=== PATIENT | male | born 1930 | race Caucasian/White ===

== ENCOUNTER 2017-04-07 09:22 | Outpatient (CLI) | payer BC ==
--- NOTE | 2017-04-07 12:31 | XRAY Report ---
LEFT HIP AND PELVIS: 04/07/2017 CLINICAL INDICATION: Left hip pain. FINDINGS: Frontal view of the hips and pelvis and frogleg lateral view of the left hip demonstrate m ild osteoarthritis. There is no evidence of acute fracture or dislocation. No radiopaque foreign body is seen in the soft tissues. IMPRESSION: MILD OSTEOARTHRITIS. JOB #: [id number] EXT [id number] #:[id number]
== END 2017-04-07 09:23 | disposition home or self-care (01) ==
LOC: DI 09:22
PROVIDERS: ATTEND Family Medicine
DX: M16.12 Unilateral primary osteoarthritis, left hip (principal)

== ENCOUNTER 2017-05-18 07:14 | Emergency (ER) | payer BC ==
--- NOTE | 2017-05-18 08:16 | ED Physician Documentation ---
History of Present Illness - Stated complaint Stated Complaint: COUGHING BLOOD - Chief complaint Chief Complaint: Resp - Additonal information Additional information: Patient is a 86-year-old male with a history of GERD, dyslipidemia, atrial fibrillation on Xarelto, hypertension and hypothyroidism. He presents with a complaint of spitting up a small amount of blood this morning. He believes it might of been blood-tinged mucus. This happened a couple times. He is unclear of the source as far as whether it is from his lungs or oropharynx. He denies any ENT symptoms and has no complaints of chest pain cough, shortness of breath or fever. He is quite clear that is not coming from his stomach. When you have small amount of mucus with blood streaks were seen earlier today's never had this problem before he is compliant with his Xarelto there is no history of congestive heart failure. He really has no significant complaints other than seeing the blood and mucus today. Review of systems: For pertinent positive and negatives in the review of systems please see the history of present illness, otherwise all other systems have been reviewed and are negative. Dragon disclaimer: Parts of this medical record were created using voice recognition technology. Because of the inherent limitations of this system, occasional same sounding word substitutions do occur and persist despite proofreading. Please read the document for context. Review of Systems Ten Systems: 10 systems reviewed and negative Constitutional: denies: Fever, Chills, Myalgias Throat: reports: Oral lesions / sores. denies: Dental pain / toothache, Sore throat Respiratory: denies: Dyspnea, Cough GI: denies: Abdominal Pain, Abdominal Swelling PD PAST MEDICAL HISTORY - Past Medical History Cardiovascular: Hypertension, Atrial fibrillation, Arrhythmia, Other Respiratory: None Neuro: TIA Endocrine/Autoimmune: HyPOthyroidism GI: GERD, Hiatal hernia : None HEENT: Chronic hearing loss Psych: None Musculoskeletal: None Derm: None - Past Surgical History Past Surgical History: Yes General: Hiatal hernia repair, Colonoscopy, EGD Ortho: Other Derm: Skin cancer surgery - Present Medications Home Medications: Ambulatory Orders Medication Instructions Recorded Confirmed Cholecalciferol (Vitamin D3) 1,000 unit PO DAILY 11/14/14 05/18/17 [Vitamin D] Cod Liver Oil 1 each PO DAILY 11/14/14 05/18/17 Esomeprazole Magnesium [Nexium] 40 mg PO BID 11/14/14 05/18/17 Flaxseed Oil/[place] 3,6,9 [Sv 1 each PO DAILY 11/14/14 05/18/17 Flaxseed Oil 1,300 mg Sftgl] Levothyroxine [Synthroid] 25 mg PO DAILY 11/14/14 05/18/17 Multivitamin [Multivitamins] 1 each PO DAILY 11/14/14 05/18/17 Atorvastatin [Lipitor] 10 mg ORAL DAILY 12/10/15 05/18/17 Isosorbide Mononitrate [Isosorbide 30 mg ORAL DAILY 12/10/15 05/18/17 Mononitrate ER] Losartan/Hydrochlorothiazide 0.5 tab ORAL DAILY 12/10/15 05/18/17 [Hyzaar 100-25 Tablet] Mag Carb/Al Hydrox/Alginic AC 160 mg PO ONCE PRN 12/10/15 05/18/17 [Gaviscon Extra Strength Liquid] Rivaroxaban [Xarelto] 10 mg PO DAILY 12/10/15 05/18/17 Aspirin [Adult Low Dose Aspirin EC] 81 mg PO DAILY 05/18/17 05/18/17 Nitroglycerin [Nitrostat] 0.4 mg PO PRN PRN 05/18/17 05/18/17 - Allergies Allergies/Adverse Reactions: Allergies Allergy/AdvReac Type Severity Reaction Status Date / Time No Known Drug Allergies Allergy Verified 05/18/17 07:23 - Social History Does the pt smoke?: No Smoking Status: Never smoker Does the pt drink ETOH?: No Does the pt have substance abuse?: No - Immunizations Immunizations are current?: Yes - POLST Patient has POLST: No PD ED PE NORMAL - General General: Alert and oriented X 3, No acute distress, Well developed/nourished - HEENT HEENT: Atraumatic, PERRL, EOMI, Ears normal, Moist mucous membranes, Pharynx benign, Dentition benign - Neck Neck: Supple, no meningeal sign, No bony TTP - Cardiac Cardiac: RRR, No murmur, No gallop, No rub, Other (Mildly bradycardic and occasionally irregular) - Respiratory Respiratory: No respiratory distress, Clear bilaterally - Abdomen Abdomen: Normal bowel sounds, Soft, Non tender, Non distended - Derm Derm: Normal color, Warm and dry - Extremities Extremities: No deformity, No tenderness to palpate, Normal ROM s pain, No edema - Neuro Neuro: Alert and oriented X 3, No motor deficit, No sensory deficit Results - Vitals Vitals: Vital Signs - 24 hr 05/18/17 05/18/17 05/18/17 07:20 07:44 09:08 Temperature 36.1 C L 36.1 C L Heart Rate 58 L 53 L Respiratory 13 16 Rate Blood Pressure 193/79 H 175/75 H O2 Saturation 99 98 05/18/17 09:14 Temperature Heart Rate 52 L Respiratory 16 Rate Blood Pressure 177/68 H O2 Saturation 99 Oxygen O2 Source Room air - Labs Labs: Laboratory Tests 05/18/17 05/18/17 05/18/17 08:10 08:10 08:10 WBC 6.0 RBC 4.24 L Hgb 13.8 L Hct 40.7 L MCV 96.1 H MCH 32.5 H MCHC 33.8 RDW 14.0 Plt Count 136 MPV 9.3 Neut # 3.8 Lymph # 1.2 L [place] # 0.8 Eos # 0.2 Baso # 0.0 Absolute Nucleated RBC 0.00 Nucleated RBCs 0.0 PT 13.8 H INR 1.2 Sodium 140 Potassium 4.0 Chloride 105 Carbon Dioxide 29 Anion Gap 6.0 BUN 28 H Creatinine 1.1 Estimated GFR (MDRD) 64 L Glucose 123 H Calcium 8.9 Total Bilirubin 0.8 AST 19 ALT 21 Alkaline Phosphatase 90 Total Protein 6.4 L Albumin 3.8 Globulin 2.6 Albumin/Globulin Ratio 1.5 Lipase 22 Urine Color Urine Clarity Urine pH Ur Specific [place] Urine Protein Urine Glucose (UA) Urine Ketones Urine Occult Blood Urine Nitrite Urine Bilirubin Urine Urobilinogen Ur Leukocyte Esterase Ur Microscopic Review Urine Culture Comments 05/18/17 08:31 WBC RBC Hgb Hct MCV MCH MCHC RDW Plt Count MPV Neut # Lymph # [place] # Eos # Baso # Absolute Nucleated RBC Nucleated RBCs PT INR Sodium Potassium Chloride Carbon Dioxide Anion Gap BUN Creatinine Estimated GFR (MDRD) Glucose Calcium Total Bilirubin AST ALT Alkaline Phosphatase Total Protein Albumin Globulin Albumin/Globulin Ratio Lipase Urine Color YELLOW Urine Clarity CLEAR Urine pH 6.0 Ur Specific [place] 1.020 Urine Protein NEGATIVE Urine Glucose (UA) NEGATIVE Urine Ketones NEGATIVE Urine Occult Blood NEGATIVE Urine Nitrite NEGATIVE Urine Bilirubin NEGATIVE Urine Urobilinogen 0.2 (NORMAL) Ur Leukocyte Esterase NEGATIVE Ur Microscopic Review NOT INDICATED Urine Culture Comments NOT INDICATED PD MEDICAL DECISION MAKING - ED course Complexity details: reviewed old records, reviewed results, re-evaluated patient , considered differential, d/w patient ED course: Pleasant 86-year-old man who is asymptomatic for anything who presents with a small amount of blood in his mucus. He is unclear where this has come from. He does not have any cardiac, pulmonary, or gastrointestinal symptoms or findings. Careful examination fails to show any obvious cause. Blood work on this patient shows chronic kidney disease but no evidence of any acute abnormality. His chest x-ray shows no acute intrathoracic disease. I suspect it is coming from his oral nasopharynx and the fact that he is on Xarelto is likely contributory. At this point in time there is no evidence of congestive heart failure clinical evidence suggesting pulmonary mass or pulmonary embolism. I will have him watch his symptoms closely. And he should follow-up with his doctor return should any of his symptoms recur or worsen. Disposition: To home Clinical impression: 1. Bloody mucus in mouth. Small amount is no obvious source found doubt pulmonary or gastrointestinal at this time Departure - Departure Disposition: 01 Home, Self Care Condition: Good Follow-Up: Micheal Hart MD [Primary Care Provider] - Comments: It is unclear where the blood is coming from. I suspect it is coming from your oral and nasopharynx and not from your lungs or stomach. I would continue his of Xarelto as planned and watch her symptoms closely for worsening. If you experience more bleeding and he believes it to be coming from anywhere other than your nose, sinuses her mouth please return right away
[2017-05-18 08:17] LABS: BASOPHILS % (AUTO) 0.6 %; EOSINOPHILS # (AUTO) 0.2 10^3/uL (0.0-0.7); EOSINOPHILS % (AUTO) 2.9 %; HCT - HEMATOCRIT 40.7 % (42.0-52.0); HGB - HEMOGLOBIN 13.8 g/dL (14.0-18.0); LYMPHOCYTES # (AUTO) 1.2 10^3/uL (1.5-3.5); LYMPHOCYTES % (AUTO) 19.3 %; MEAN CORPUSCULAR HEMOGLOBIN 32.5 pg (27.0-31.0); MEAN CORPUSCULAR HGB CONC 33.8 g/dL (32.0-36.0); MEAN CORPUSCULAR VOLUME 96.1 fL (80.0-94.0); MEAN PLATELET VOLUME 9.3 fL (7.4-11.4); MONOCYTES # (AUTO) 0.8 10^3/uL (0.0-1.0); MONOCYTES % (AUTO) 12.8 %; NEUTROPHILS # (AUTO) 3.8 10^3/uL (1.5-6.6); NEUTROPHILS % (AUTO) 64.4 %; RED BLOOD COUNT 4.24 10^6/uL (4.70-6.10)
[2017-05-18 08:26] LABS: INR 1.2 (0.8-1.2); PT - PROTHROMBIN TIME 13.8 secs (9.9-12.6)
[2017-05-18 08:32] LABS: ALBUMIN/GLOBULIN RATIO 1.5 (1.0-2.2); BILIRUBIN,TOTAL 0.8 mg/dL (0.2-1.0); CALCIUM 8.9 mg/dL (8.5-10.3); CREATININE 1.1 mg/dL (0.6-1.2); TOTAL PROTEIN 6.4 g/dL (6.7-8.2)
[2017-05-18 08:38] LABS: BILIRUBIN,URINE NEGATIVE (NEGATIVE)
--- NOTE | 2017-05-18 08:43 | XRAY Preliminary Report ---
Exam: XR Chest 2 View PA/LAT IMPRESSION: No focal consolidation. [facility] SITE ID: [id number]
[2017-05-18 08:44] LABS: UA CHARGE (STRIP ONLY) YES; UR CULTURE IF IND NOT INDICATED
--- NOTE | 2017-05-18 08:45 | XRAY Report ---
EXAM: CHEST RADIOGRAPHY EXAM DATE: 05/18/2017 08:27 AM. CLINICAL HISTORY: Hemoptysis?. COMPARISON: Chest radiograph dated 11/18/2013. TECHNIQUE: 2 views. FINDINGS: Lungs/Pleura: No focal opacities evident. No pleural effusion. No pneumothorax. Normal volumes. Mediastinum: Heart and mediastinal contours are unremarkable. Other: None. IMPRESSION: No focal consolidation. [facility] Referring Provider Line: [phone] SITE ID: [id number]
[2017-05-18 09:15] VITALS: BP 177/68
== END 2017-05-18 09:53 | disposition home or self-care (01) ==
LOC: ED 07:14
DX: R04.2 Hemoptysis (principal); I48.91 Unspecified atrial fibrillation; I10 Essential (primary) hypertension; E03.9 Hypothyroidism, unspecified; K21.9 Gastro-esophageal reflux disease without esophagitis; E78.5 Hyperlipidemia, unspecified; Z79.01 Long term (current) use of anticoagulants; Z86.73 Personal history of transient ischemic attack (TIA), and cerebral infarction without residual deficits
CPT/HCPCS: 36415; 71020; 80053; 81001; 81003; 83690; 85025; 85610; 87086; 99283

== ENCOUNTER 2017-09-21 20:44 | Emergency (ER) | payer BC ==
[2017-09-21] MEDS ORDERED: LIDOCAINE-MPF 1% 5 ML VIAL SUBQ STA (21:31)
[2017-09-21] MEDS ORDERED: LIDOCAINE 1% 2 ML VIAL ONE (21:40)
--- NOTE | 2017-09-21 22:03 | ED Physician Documentation ---
History of Present Illness - Stated complaint Stated Complaint: TONGUE LAC - Chief complaint Chief Complaint: Laceration - Additonal information Additional information: 87-year-old on Pradaxa presents with tongue laceration. Bit his tongue first while eating and then but it again later. Presents to the emergency department for persistent bleeding. Review of Systems Constitutional: reports: Other. denies: Fever Neurologic: reports: Other (no Dysarthria or difficulty swallowing) PD PAST MEDICAL HISTORY - Past Medical History Cardiovascular: Hypertension, Atrial fibrillation, Arrhythmia, Other Respiratory: None Neuro: TIA Endocrine/Autoimmune: HyPOthyroidism GI: GERD, Hiatal hernia : None HEENT: Chronic hearing loss Psych: None Musculoskeletal: None Derm: None - Past Surgical History Past Surgical History: Yes General: Hiatal hernia repair, Colonoscopy, EGD Ortho: Other Derm: Skin cancer surgery - Present Medications Home Medications: Ambulatory Orders Medication Instructions Recorded Confirmed Cholecalciferol (Vitamin D3) 1,000 unit PO DAILY 11/14/14 05/18/17 [Vitamin D] Cod Liver Oil 1 each PO DAILY 11/14/14 05/18/17 Esomeprazole Magnesium [Nexium] 40 mg PO BID 11/14/14 05/18/17 Flaxseed Oil/[place] 3,6,9 [Sv 1 each PO DAILY 11/14/14 05/18/17 Flaxseed Oil 1,300 mg Sftgl] Levothyroxine [Synthroid] 25 mg PO DAILY 11/14/14 05/18/17 Multivitamin [Multivitamins] 1 each PO DAILY 11/14/14 05/18/17 Atorvastatin [Lipitor] 10 mg ORAL DAILY 12/10/15 05/18/17 Isosorbide Mononitrate [Isosorbide 30 mg ORAL DAILY 12/10/15 05/18/17 Mononitrate ER] Losartan/Hydrochlorothiazide 0.5 tab ORAL DAILY 12/10/15 05/18/17 [Hyzaar 100-25 Tablet] Mag Carb/Al Hydrox/Alginic AC 160 mg PO ONCE PRN 12/10/15 05/18/17 [Gaviscon Extra Strength Liquid] Rivaroxaban [Xarelto] 10 mg PO DAILY 12/10/15 05/18/17 Aspirin [Adult Low Dose Aspirin EC] 81 mg PO DAILY 05/18/17 05/18/17 Nitroglycerin [Nitrostat] 0.4 mg PO PRN PRN 05/18/17 05/18/17 - Allergies Allergies/Adverse Reactions: Allergies Allergy/AdvReac Type Severity Reaction Status Date / Time lisinopril Allergy Edema Verified 09/21/17 20:55 - Social History Does the pt smoke?: No Smoking Status: Never smoker Does the pt drink ETOH?: Yes ETOH Use: Wine, Beer, Liquor Does the pt have substance abuse?: No - Immunizations Immunizations are current?: Yes - POLST Patient has POLST: No PD ED PE NORMAL - Vitals Vital signs reviewed: Yes - General General: Alert and oriented X 3, No acute distress - HEENT HEENT: Other (2 tongue lacerations, 5-10 mm, one with controlled bleeding, the other with oozing. ) - Neck Neck: Supple, no meningeal sign - Respiratory Respiratory: No respiratory distress, Clear bilaterally - Derm Derm: Warm and dry - Extremities Extremities: No deformity - Neuro Neuro: Alert and oriented X 3, Normal speech - Psych Psych: Normal mood, Normal affect Results - Vitals Vitals: Vital Signs - 24 hr 09/21/17 20:45 Temperature 36.3 C L Heart Rate 55 L Respiratory 16 Rate Blood Pressure 187/69 H O2 Saturation 98 Oxygen O2 Source Room air Procedures - Laceration (location) Other right Anterior Wound type: Flap, Superficial, Clean Anesthesia: Lidocaine 1% Skin layer closure: Other (3 4-0 chromic sutures.) Departure - Departure Disposition: 01 Home, Self Care Clinical Impression: Laceration Condition: Good Instructions: ED Laceration Mouth Comments: Make an appointment with your primary care doctor for follow-up as needed. This evening you should try sleeping propped up more than usual or uprightIn case her tongue starts bleeding a lot while you are sleeping. Return to the emergency department if you have worsening bleeding, lightheadedness or dizziness or nausea or vomiting. Your sutures will dissolve on their own you do not need to have them removed.
[2017-09-21 22:44] VITALS: BP 179/85
== END 2017-09-21 22:44 | disposition home or self-care (01) ==
LOC: ED 20:44
DX: S01.512A Laceration without foreign body of oral cavity, initial encounter (principal); X58.XXXA Exposure to other specified factors, initial encounter; I10 Essential (primary) hypertension; Z85.828 Personal history of other malignant neoplasm of skin; Z79.01 Long term (current) use of anticoagulants; Z79.82 Long term (current) use of aspirin
CPT/HCPCS: 41250; 99283

== ENCOUNTER 2018-11-08 12:04 | Outpatient (CLI) | payer BC ==
--- NOTE | 2018-11-08 12:53 | XRAY Report ---
Reason: PNEUMONIA Procedure Date: 11/08/2018 Accession Number: [id number] / [id number] Procedure: XR - Chest 2 View X-Ray CPT Code: 58698 FULL RESULT: EXAM: CHEST RADIOGRAPHY EXAM DATE: 11/08/2018 12:25 PM. CLINICAL HISTORY: PNEUMONIA. COMPARISON: CHEST 2 VIEW PA/LAT 05/18/2017 8:12 AM. TECHNIQUE: 2 views. FINDINGS: Lungs/Pleura: No focal opacities evident. No pleural effusion. No pneumothorax. Normal volumes. Mediastinum: Heart and mediastinal contours are unremarkable. Other: Some degenerative changes in the shoulders, no acute bony abnormality. Slight curvature of the thoracolumbar junction was present on the prior. IMPRESSION: No acute disease. [facility]
== END 2018-11-08 12:05 | disposition home or self-care (01) ==
LOC: DI 12:04
PROVIDERS: ATTEND Family Medicine
DX: J18.9 Pneumonia, unspecified organism (principal)
CPT/HCPCS: 71046

== ENCOUNTER 2019-08-21 09:18 | Outpatient (CLI) | payer BC | END 2019-08-21 09:19 | disposition critical access hospital (66) | LOC: EMS 09:18 | PROVIDERS: ATTEND Surgery | DX: R07.9 Chest pain, unspecified (principal) | CPT/HCPCS: A0425; A0427 ==

== ENCOUNTER 2019-08-21 09:37 | Emergency (ER) | payer BC ==
[2019-08-21] MEDS ORDERED: FAMOTIDINE 20 MG/2 ML VIAL IVP STA (10:07)
[2019-08-21] MEDS ORDERED: MORPHINE 2 MG/ML CARPUJECT IVP STA (10:07)
[2019-08-21] MEDS ORDERED: ONDANSETRON 4 MG/2 ML VIAL IVP STA (10:07)
[2019-08-21 10:10] LABS: BASOPHILS % (AUTO) 0.5 %; EOSINOPHILS # (AUTO) 0.1 10^3/uL (0.0-0.7); EOSINOPHILS % (AUTO) 1.4 %; HGB - HEMOGLOBIN 12.8 g/dL (14.0-18.0); LYMPHOCYTES % (AUTO) 14.6 %; MEAN CORPUSCULAR HEMOGLOBIN 31.4 pg (27.0-31.0); MEAN CORPUSCULAR HGB CONC 32.7 g/dL (32.0-36.0); MEAN CORPUSCULAR VOLUME 96.1 fL (80.0-94.0); MEAN PLATELET VOLUME 10.8 fL (7.4-11.4); MONOCYTES # (AUTO) 0.7 10^3/uL (0.0-1.0); NEUTROPHILS # (AUTO) 4.7 10^3/uL (1.5-6.6); NEUTROPHILS % (AUTO) 72.2 %; PLT - PLATELET COUNT 169 10^3/uL (130-450); RED BLOOD COUNT 4.07 10^6/uL (4.70-6.10); RED CELL DISTRIBUTION WIDTH 13.8 % (12.0-15.0); WHITE BLOOD COUNT 6.6 x10^3/uL (4.8-10.8)
--- NOTE | 2019-08-21 10:10 | ED Physician Documentation ---
PD HPI CHEST PAIN - Stated complaint Stated Complaint: CP - Chief complaint Chief Complaint: Cardiac - History obtained from History obtained from: Patient - History of Present Illness Timing - onset: Today Timing - onset during: Eating Timing - details: Abrupt onset Pain level now: 3 Quality: Pain Location: Substernal, Left chest Radiation: No: Jaw, Neck, Back, Left upper extremity Improved by: Nitro, ASA Associated symptoms: No: Shortness of air, Diaphoresis, Nausea, Vomiting, Feeling faint / dizzy, General Weakness, Palpitations, Cough Recently seen: Not recently seen - Additional information Additional information: This is an 89-year-old man who presents with his complaints that he developed chest pain this morning while eating breakfast. He had nitroglycerin that was given to him prior to a trip that he took that he was good to be at high elevation and so he took 3 of them today and the pain came down only to a 2-3 out of 10. He also took 4 baby aspirin. Patient says that he has been taking these nitroglycerin off and on for the past week for this same pain. Each time he is taken nitroglycerin the pain has resolved after just 2 pills. He denies history of [place], stents or bypass surgery but does take Xarelto. He also reports a history of "TIAs". This pain was not associated with any shortness of breath, sweating, nausea or vomiting or dizziness. Was in the epigastric substernal region and today it was a little bit "leftish" from there. Denies edema or history of DVT. Review of Systems Constitutional: denies: Fever Eyes: reports: Other (Wears glasses) Ears: reports: Loss of hearing (Wears hearing aids) Nose: denies: Congestion Throat: denies: Sore throat Cardiac: reports: Chest pain / pressure. denies: Palpitations, Pedal edema Respiratory: denies: Dyspnea, Cough GI: denies: Abdominal Pain, Nausea, Vomiting : denies: Dysuria Neurologic: denies: Generalized weakness, Near syncope, Syncope Endocrine: reports: Other (Patient is not a diabetic.) PD PAST MEDICAL HISTORY - Past Medical History Cardiovascular: Hypertension, Atrial fibrillation, Arrhythmia, Other Respiratory: None Neuro: TIA Endocrine/Autoimmune: HyPOthyroidism GI: GERD, Hiatal hernia : None HEENT: Chronic hearing loss Psych: None Musculoskeletal: Osteoarthritis Derm: None - Past Surgical History Past Surgical History: Yes General: Hiatal hernia repair, Colonoscopy, EGD Ortho: Other Derm: Skin cancer surgery - Present Medications Home Medications: Ambulatory Orders Medication Instructions Recorded Confirmed Cholecalciferol (Vitamin D3) 1,000 unit PO DAILY 11/14/14 08/21/19 [Vitamin D] Cod Liver Oil 1 each PO DAILY 11/14/14 08/21/19 Flaxseed Oil/[place] 3,6,9 [Sv 1 each PO DAILY 11/14/14 08/21/19 Flaxseed Oil 1,300 mg Sftgl] Levothyroxine [Synthroid] 25 mg PO DAILY 11/14/14 08/21/19 Multivitamin [Multivitamins] 1 each PO DAILY 11/14/14 08/21/19 Atorvastatin [Lipitor] 10 mg ORAL DAILY 12/10/15 08/21/19 Isosorbide Mononitrate [Isosorbide 30 mg ORAL DAILY 12/10/15 08/21/19 Mononitrate ER] Losartan/Hydrochlorothiazide 0.5 tab ORAL DAILY 12/10/15 08/21/19 [Hyzaar 100-25 Tablet] Mag Carb/Al Hydrox/Alginic AC 160 mg PO ONCE PRN 12/10/15 08/21/19 [Gaviscon Extra Strength Liquid] Rivaroxaban [Xarelto] 10 mg PO DAILY 12/10/15 08/21/19 Aspirin [Adult Low Dose Aspirin EC] 81 mg PO DAILY 05/18/17 08/21/19 Nitroglycerin [Nitrostat] 0.4 mg PO PRN PRN 05/18/17 08/21/19 - Allergies Allergies/Adverse Reactions: Allergies Allergy/AdvReac Type Severity Reaction Status Date / Time lisinopril Allergy Edema Verified 08/21/19 09:42 - Social History Does the pt smoke?: No Smoking Status: Never smoker Does the pt drink ETOH?: Yes Does the pt have substance abuse?: No - Immunizations Immunizations are current?: Yes - POLST Patient has POLST: No PD ED PE NORMAL - Vitals Vital signs reviewed: Yes - General General: Alert and oriented X 3, No acute distress, Well developed/nourished - HEENT HEENT: Atraumatic, PERRL, Moist mucous membranes, Pharynx benign - Neck Neck: Supple, no meningeal sign, No adenopathy, Thyroid normal - Cardiac Cardiac: RRR, No murmur, No rub, Strong equal pulses - Respiratory Respiratory: No respiratory distress, Clear bilaterally - Abdomen Abdomen: Normal bowel sounds, Soft, Non tender, Non distended, No organomegaly - Derm Derm: Normal color, Warm and dry, No rash - Extremities Extremities: No deformity, No edema - Neuro Neuro: Alert and oriented X 3, No motor deficit, No sensory deficit, Normal speech - Psych Psych: Normal mood, Normal affect Results - Vitals Vitals: Vital Signs - 24 hr 08/21/19 08/21/19 08/21/19 09:42 09:52 10:20 Temperature 36.1 C L 36.2 C L Heart Rate 76 66 61 Respiratory 16 17 16 Rate Blood Pressure 195/86 H 207/94 H 170/80 H O2 Saturation 97 98 98 08/21/19 11:07 Temperature 36.2 C L Heart Rate 62 Respiratory 18 Rate Blood Pressure 164/65 H O2 Saturation 97 Oxygen O2 Source Room air - EKG (time done) 0948 Rate: Rate (enter#) (66) Rhythm: NSR (With PACs) Intervals: Normal [place] Ischemia: ST depression (Minimal ST depressions in the lateral leads but there are large R waves) Compare to prior EKG: Old EKG unavailable - Labs Labs: Laboratory Tests 08/21/19 08/21/19 08/21/19 09:58 09:58 09:58 WBC 6.6 RBC 4.07 L Hgb 12.8 L Hct 39.1 L MCV 96.1 H MCH 31.4 H MCHC 32.7 RDW 13.8 Plt Count 169 MPV 10.8 Neut # (Auto) 4.7 Lymph # (Auto) 1.0 L [place] # (Auto) 0.7 Eos # (Auto) 0.1 Baso # (Auto) 0.0 Absolute Nucleated RBC 0.00 Nucleated RBC % 0.0 Sodium 138 Potassium 3.8 Chloride 100 L Carbon Dioxide 29 Anion Gap 9.0 BUN 23 H Creatinine 1.1 Estimated GFR (MDRD) 63 L Glucose 151 H Calcium 8.8 Total Bilirubin 0.8 AST 23 ALT 19 Alkaline Phosphatase 85 Troponin I High Sens 445.7 H* Total Protein 6.6 L Albumin 3.8 Globulin 2.8 Albumin/Globulin Ratio 1.4 Lipase 24 - Rads (name of study) CXR Radiology: EMP read contemporaneously (Neg acute) PD MEDICAL DECISION MAKING - ED course Complexity details: reviewed results, re-evaluated patient, d/w patient, d/w family, d/w mgmt consultant (10:53: Cardiology, Dr Cruz, requested ER to ER transfer to [place] due to ongoing chest pain. Agreed with Ntg drip and Heparin.) ED course: Patient's EKG had some minor ST to pression lateral leads but he had very tall R waves. No ST elevation. Chest x-ray was clear. His troponin came back over 400. He started on heparin and on reevaluation after having received morphine, Zofran and Pepcid IV he was still complaining of 2 out of 10 pain. He started on a nitroglycerin drip as well just low-dose. He is also remained hypertensive and bradycardic. Will contact his puddler helper or the on-call puddler helper for Dr. Cruz for transfer. Dr Mcacrthy in the ED at [place] agreed to accept the patient in transfer. Due to the ongoing pain and plan for cardiac cath, the patient will be sent by air ambulance. After he was loaded into the helicopter on the landing pad, the helicopter would not start and arrangements were made to rendezvous via ambulance with another helicopter at an alternative landing site. - Critical Care Time(min): 20 Time Includes: Direct patient care, Review records, Reassess patient, Document care, Coordinate care Data interpretation: Labs, CXR Departure - Departure Disposition: 02 Transfer Acute Care Hosp Clinical Impression: NSTEMI (non-ST elevated myocardial infarction) Condition: Good Discharge Date/Time: 08/21/19 11:30
[2019-08-21 10:24] LABS: ALBUMIN 3.8 g/dL (3.2-5.5); ALBUMIN/GLOBULIN RATIO 1.4 (1.0-2.2); BILIRUBIN,TOTAL 0.8 mg/dL (0.2-1.0); CALCIUM 8.8 mg/dL (8.5-10.3); CREATININE 1.1 mg/dL (0.6-1.2); TOTAL PROTEIN 6.6 g/dL (6.7-8.2)
[2019-08-21] MEDS ORDERED: HEPARIN 5,000 UNIT/ML VIAL IVP STA (10:41)
[2019-08-21] MEDS ORDERED: HEPARIN 25000UNITS/500ML (D5W) 25,000 UNIT/500 ML BAG IV STA (10:41)
[2019-08-21] MEDS ORDERED: NITROGLYCERIN 50 MG/250 ML 50 MG/250 ML BOTTLE IV STA (10:42)
[2019-08-21 11:09] VITALS: BP 164/65
--- NOTE | 2019-08-21 11:10 | XRAY Report ---
Reason: Chest Pain Procedure Date: 08/21/2019 Accession Number: [id number] / [id number] Procedure: XR - Chest 1 View X-Ray CPT Code: 73299 Final Report FULL RESULT: EXAM: CHEST RADIOGRAPHY EXAM DATE: 08/21/2019 10:32 AM. CLINICAL HISTORY: Chest Pain. Took 3 nitros before coming in, no change in pain level. COMPARISON: CHEST 2 VIEW 11/08/2018 12:15 PM CHEST 2 VIEW PA/LAT 05/18/2017 8:12 AM. TECHNIQUE: 1 view. FINDINGS: Lungs/Pleura: Senescent changes. No focal consolidation, pleural effusion, or pneumothorax. Mediastinum: Atherosclerotic calcification of aortic arch. Within exam limitations, the cardiomediastinal contour is otherwise normal. Other: Stable elevation of right hemidiaphragm. Mild degenerative changes in the partially visualized right shoulder. IMPRESSION: 1. No radiographic evidence of acute cardiopulmonary process. [facility]
== END 2019-08-21 11:30 | disposition short-term general hospital (02) ==
LOC: EDUNIT# → ED 09:37
DX: I21.4 Non-ST elevation (NSTEMI) myocardial infarction (principal); I10 Essential (primary) hypertension
CPT/HCPCS: 36415; 71045; 80053; 83690; 84484; 85025; 93005; 96374; 96375; 99284

== ENCOUNTER 2019-08-21 12:13 | Outpatient (CLI) | payer BC | END 2019-08-21 12:14 | disposition short-term general hospital (02) | LOC: EMS 12:13 | PROVIDERS: ATTEND Surgery | DX: I21.9 Acute myocardial infarction, unspecified (principal) | CPT/HCPCS: A0425; A0429 ==

== ENCOUNTER 2020-08-07 11:53 | Emergency (ER) | payer BC ==
--- NOTE | 2020-08-07 12:19 | ED Physician Documentation ---
History of Present Illness - Stated complaint Stated Complaint: RT FT PX - Chief complaint Chief Complaint: Ext Problem - History obtained from History obtained from: Patient - History of Present Illness Timing: How many days ago (3) - Additonal information Additional information: 89-year-old male presents to the emergency department with 3 days of acute right lateral foot pain. He denies any known falls or trauma. 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 When the pain began initially he was using Aspercreme with moderate relief but over the last 24 hours has been unable to bear weight on the foot. He denies any previous history of injury to this foot. No fevers. Review of Systems Constitutional: reports: Reviewed and negative Ears: reports: Reviewed and negative Throat: reports: Dental pain / toothache Cardiac: reports: Reviewed and negative Respiratory: reports: Reviewed and negative Skin: reports: Reviewed and negative Musculoskeletal: reports: Extremity pain (right foot) Neurologic: reports: Reviewed and negative PD PAST MEDICAL HISTORY - Past Medical History Cardiovascular: Hypertension, Atrial fibrillation, Arrhythmia, Other Respiratory: None Neuro: TIA Endocrine/Autoimmune: HyPOthyroidism GI: GERD, Hiatal hernia : None HEENT: Chronic hearing loss Psych: None Musculoskeletal: Osteoarthritis Derm: None - Past Surgical History Past Surgical History: Yes General: Hiatal hernia repair, Colonoscopy, EGD Ortho: Other Derm: Skin cancer surgery - Present Medications Home Medications: Ambulatory Orders Medication Instructions Recorded Confirmed Cholecalciferol (Vitamin D3) 1,000 unit PO DAILY 11/14/14 08/21/19 [Vitamin D] Cod Liver Oil 1 each PO DAILY 11/14/14 08/21/19 Flaxseed Oil/[place] 3,6,9 [Sv 1 each PO DAILY 11/14/14 08/21/19 Flaxseed Oil 1,300 mg Sftgl] Levothyroxine [Synthroid] 25 mg PO DAILY 11/14/14 08/21/19 Multivitamin [Multivitamins] 1 each PO DAILY 11/14/14 08/21/19 Atorvastatin [Lipitor] 10 mg ORAL DAILY 12/10/15 08/21/19 Isosorbide Mononitrate [Isosorbide 30 mg ORAL DAILY 12/10/15 08/21/19 Mononitrate ER] Losartan/Hydrochlorothiazide 0.5 tab ORAL DAILY 12/10/15 08/21/19 [Hyzaar 100-25 Tablet] Mag Carb/Al Hydrox/Alginic AC 160 mg PO ONCE PRN 12/10/15 08/21/19 [Gaviscon Extra Strength Liquid] Rivaroxaban [Xarelto] 10 mg PO DAILY 12/10/15 08/21/19 Aspirin [Adult Low Dose Aspirin EC] 81 mg PO DAILY 05/18/17 08/21/19 Nitroglycerin [Nitrostat] 0.4 mg PO PRN PRN 05/18/17 08/21/19 Acetaminophen [Tylenol] 650 mg PO Q6H PRN #30 tab 08/07/20 Knee Scooter 1 unit TD ONCE #1 08/07/20 Knee Scooter 1 unit TD ONCE #1 08/07/20 - Allergies Allergies/Adverse Reactions: Allergies Allergy/AdvReac Type Severity Reaction Status Date / Time lisinopril Allergy Edema Verified 08/07/20 12:09 - Social History Does the pt smoke?: No Smoking Status: Never smoker Does the pt drink ETOH?: Yes Does the pt have substance abuse?: No - Immunizations Immunizations are current?: Yes - POLST Patient has POLST: No PD ED PE EXPANDED - General General: Alert, No acute distress - Extremities Extremities: Right foot (tenderness base of the 4th/5th metatarsals. No swelling, ecchymosis or deformity. 2+ DP pulse. Full normal ROM of ankle in all planes) Results - Vitals Vitals: Vital Signs - 24 hr 08/07/20 08/07/20 12:01 13:25 Temperature 37.1 C 37.1 C Heart Rate 66 57 L Respiratory 18 18 Rate Blood Pressure 154/70 H 111/49 L O2 Saturation 99 99 Oxygen O2 Source Room air - Rads (name of study) right foot Radiology: Final report received (No acute osseous or abnormality noted) PD MEDICAL DECISION MAKING - ED course Complexity details: reviewed results, re-evaluated patient, considered differential, d/w patient ED course: 89-year-old male presents to the emergency department for evaluation of 3 days right foot pain. Denies any recent falls or trauma but did recently stomp on some aluminum cans. He has pain at the base the fourth and fifth metatarsals. X-ray does not show obvious fracture. He however does have moderate pain with weight bearing and is using a cane to walk. he is somewhat unsteady with this device. At this time I suspect he likely has a foot contusion. He reports that he does have a podiatry appointment scheduled for 13 August. In order to allow him to safely get around I will prescribe a knee scooter. I will also recommend Tylenol for analgesia. Given the lack of swelling or erythema my suspicion for infection is low. Emergent return precautions discussed Departure - Departure Disposition: Home, Self Care Clinical Impression: Inability to ambulate due to ankle or foot Contusion of right foot Qualifiers: Encounter type: initial encounter Qualified Code(s): S90.31XA - Contusion of right foot, initial encounter Foot contusion Qualifiers: Encounter type: initial encounter Laterality: right Qualified Code(s): S90.31XA - Contusion of right foot, initial encounter Condition: Good Record reviewed to determine appropriate education?: Yes Prescriptions: Knee Scooter 1 unit TD ONCE #1 Knee Scooter 1 unit TD ONCE #1 Acetaminophen [Tylenol] 650 mg PO Q6H PRN #30 tab PRN Reason: Pain Comments: Dimitry the x-ray of your foot does not show any broken bones. I think that you may have a contusion on the bottom of your foot. I would like you to fill the prescription for the knee scooter and use it to get around for the next few days. 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 For pain I would like you to take Tylenol 3 times a day. If despite the Tylenol your ability to bear weight on the foot is not markedly better within the week follow-up with your primary doctor or return to the emergency department for a second evaluation Discharge Date/Time: 08/07/20 13:29
--- NOTE | 2020-08-07 12:55 | XRAY Report ---
PROCEDURE: Foot 3 View RT INDICATIONS: lateral foot pain; stomping cans TECHNIQUE: 3 views of the foot were acquired. COMPARISON: None. FINDINGS: Bones: No acute fractures or dislocations. No suspicious bony lesions. Mild to moderate degenerati ve changes are seen in the midfoot. A small os perineum is present. Soft tissues: No tibiotalar joint effusion. Achilles tendon appears normal. IMPRESSION: No acute osseous abnormality. If symptoms persist with conservative management, further evaluation wi th CT or MRI may be obtained. Reviewed by: Alton Godinez MD on 08/07/2020 12:54 PM PDT Approved by: Alton Godinez MD on 08/07/2020 12:54 PM PDT Station ID: [id number]
[2020-08-07 13:26] VITALS: BP 111/49
== END 2020-08-07 13:29 | disposition home or self-care (01) ==
LOC: ED 11:53
DX: S90.31XA Contusion of right foot, initial encounter (principal); W27.4XXA Contact with kitchen utensil, initial encounter; I10 Essential (primary) hypertension; I48.91 Unspecified atrial fibrillation; Z79.01 Long term (current) use of anticoagulants
CPT/HCPCS: 99283

== ENCOUNTER 2020-12-14 07:58 | Emergency (ER) | payer BC, MEDICARE ==
--- NOTE | 2020-12-14 08:20 | ED Physician Documentation ---
PD HPI BACK PAIN - Stated complaint Stated Complaint: RT HIP/BACK PX - Chief complaint Chief Complaint: Back Pain - History obtained from History obtained from: Patient - History of Present Illness Timing - onset: How many weeks ago (2) Timing - duration: Weeks (2) Timing - details: Abrupt onset, Still present, Waxing and waning (worse the past 4 days, more consistent.) Location: Lower, Right, Other (midline too) Quality: Pain, Sharp, Aching Associated symptoms: No: Fever, Weakness, Numbness, Incontinent of urine Improves with: Rest Worsened by: Movement, Twisting Contributing factors: Lifting (he did lift 40 lb bag of birdseed prior to the onset of the pain). No: Twisting Similar symptoms before: Has not had sx before Recently seen: Not recently seen Review of Systems Constitutional: denies: Fever, Chills Nose: denies: Rhinorrhea / runny nose, Congestion Throat: denies: Sore throat Respiratory: denies: Cough GI: denies: Abdominal Pain, Nausea, Vomiting, Diarrhea : denies: Incontinent Skin: denies: Rash, Lesions Neurologic: denies: Focal weakness, Numbness PD PAST MEDICAL HISTORY - Past Medical History Cardiovascular: Hypertension, Atrial fibrillation, Arrhythmia, Other Respiratory: None Neuro: TIA Endocrine/Autoimmune: HyPOthyroidism GI: GERD, Hiatal hernia : None HEENT: Chronic hearing loss Psych: None Musculoskeletal: Osteoarthritis Derm: None - Past Surgical History Past Surgical History: Yes General: Hiatal hernia repair, Colonoscopy, EGD Ortho: Other Derm: Skin cancer surgery - Present Medications Home Medications: Ambulatory Orders Medication Instructions Recorded Confirmed Cholecalciferol (Vitamin D3) 1,000 unit PO DAILY 11/14/14 12/14/20 [Vitamin D] Cod Liver Oil 1 each PO DAILY 11/14/14 12/14/20 Flaxseed Oil/[place] 3,6,9 [Sv 1 each PO DAILY 11/14/14 12/14/20 Flaxseed Oil 1,300 mg Sftgl] Levothyroxine [Synthroid] 25 mcg PO DAILY 11/14/14 12/14/20 Multivitamin [Multivitamins] 1 each PO DAILY 11/14/14 12/14/20 Atorvastatin [Lipitor] 10 mg ORAL DAILY 12/10/15 12/14/20 Isosorbide Mononitrate [Isosorbide 30 mg ORAL DAILY 12/10/15 12/14/20 Mononitrate ER] Losartan/Hydrochlorothiazide 0.5 tab ORAL DAILY 12/10/15 12/14/20 [Hyzaar 100-25 Tablet] Mag Carb/Al Hydrox/Alginic AC 160 mg PO ONCE PRN 12/10/15 12/14/20 [Gaviscon Extra Strength Liquid] Rivaroxaban [Xarelto] 10 mg PO DAILY 12/10/15 12/14/20 Nitroglycerin [Nitrostat] 0.4 mg PO PRN PRN 05/18/17 12/14/20 Acetaminophen [Tylenol] 1,000 mg PO Q6H PRN 12/14/20 12/14/20 Esomeprazole Magnesium [Nexium] 20 mg PO BID 12/14/20 12/14/20 HYDROcod/ACETAM 5/325 [[place] 5/325] 1 ea PO Q6H PRN #10 tablet 12/14/20 methocarbamoL [Robaxin] 500 mg PO Q6H PRN #20 tablet 12/14/20 - Allergies Allergies/Adverse Reactions: Allergies Allergy/AdvReac Type Severity Reaction Status Date / Time lisinopril Allergy Edema Verified 12/14/20 08:11 - Social History Does the pt smoke?: No Smoking Status: Never smoker Does the pt drink ETOH?: Yes Does the pt have substance abuse?: No - Immunizations Immunizations are current?: Yes - POLST Patient has POLST: No PD ED PE NORMAL - Vitals Vital signs reviewed: Yes - General General: Alert and oriented X 3, No acute distress, Well developed/nourished, Other (appears in pain with guraded ROM of low back. ) - Cardiac Cardiac: No murmur - Respiratory Respiratory: Clear bilaterally - Abdomen Abdomen: Soft, Non tender, Non distended - Back Back: No CVA TTP, Other (tender lower lumbar midline and also at right upper SI area.) - Derm Derm: Normal color, Warm and dry - Neuro Neuro: Alert and oriented X 3, No motor deficit, No sensory deficit, Normal speech, Other (normal knee reflexes) Results - Vitals Vitals: Vital Signs - 24 hr 12/14/20 12/14/20 08:07 10:18 Temperature 36.2 C L Heart Rate 77 51 L Respiratory 16 16 Rate Blood Pressure 150/75 H 167/51 H O2 Saturation 99 99 Oxygen O2 Source Room air - Rads (name of study) lumbar CT Radiology: Prelim report reviewed (arthritic changes; no acute process. ), See rad report PD MEDICAL DECISION MAKING - ED course Complexity details: re-evaluated patient (improved with meds here. ), considered differential (onset after lifting, but older age and consistent/worsening pain, so concern for compression, bone lesions, etc. ), d/w patient Departure - Departure Disposition: 01 Home, Self Care Clinical Impression: Low back pain Qualifiers: Chronicity: acute Back pain laterality: right Sciatica presence: without sciatica Qualified Code(s): M54.5 - Low back pain Acute lumbar myofascial strain Qualifiers: Encounter type: initial encounter Qualified Code(s): S39.012A - Strain of muscle, fascia and tendon of lower back, initial encounter Condition: Stable Record reviewed to determine appropriate education?: Yes Instructions: ED Low Back Pain Injury Follow-Up: Micheal Hart MD [Primary Care Provider] - Prescriptions: HYDROcod/ACETAM 5/325 [Alpine 5/325] 1 ea PO Q6H PRN #10 tablet PRN Reason: Pain methocarbamoL [Robaxin] 500 mg PO Q6H PRN #20 tablet PRN Reason: Spasms Comments: Your CT scan shows some arthritic changes without any acute injury or abnormality. Heat and gentle stretching for the low back. Massage or chiropractic are still fine to do if you desire. Use some Tylenol 500 mg 4 times a day regularly for the next several days to week. Add Robaxin muscle relaxant for stiffness. To that add hydrocodone if needed for worse pain periodically as prescribed. I would anticipate improvement over the next several days to a week and resolved at that time. Follow-up with your primary care if not. Continue your other usual medicines. Discharge Date/Time: 12/14/20 10:18
[2020-12-14] MEDS ORDERED: methocarbamoL 500 MG TABLET PO STA (08:41)
[2020-12-14] MEDS ORDERED: KETOROLAC 30 MG/ML VIAL IM STA (08:41)
[2020-12-14] MEDS ORDERED: ACETAMINOPHEN 325 MG TABLET PO STA (08:41)
--- NOTE | 2020-12-14 09:47 | CT Report ---
PROCEDURE: LUMBAR SPINE WO INDICATIONS: lumbar/SI area pain without injury TECHNIQUE: Noncontrast 3 mm thick sections acquired from the T12 level to the sacrum. Sagittal and coronal refo rmats were constructed. For radiation dose reduction, the following was used: automated exposure co ntrol, adjustment of mA and/or kV according to patient size. COMPARISON: None. FINDINGS: Image quality: Excellent. Bones: Trace degenerative retrolisthesis of L5 on S1. Trace degenerative anterolisthesis of L3 on L4. No acute vertebral body compression fractures. Chronic mild to moderate L1 compression. No suspicio us lytic or blastic bony lesions. Multilevel canal stenosis. No pars defects. T11-T12: No canal stenosis or foraminal stenosis. T12-L1: No canal stenosis or foraminal stenosis. L1-L2: No canal stenosis. Mild left foraminal stenosis. L2-L3: Severe chronic disc height loss. Diffuse posterior disc bulge plus osteophyte. Facet and li gament hypertrophy. Moderate canal stenosis. Large diffuse bilateral far lateral disc bulges with ass ociated osteophyte. Moderate right foraminal narrowing with flattening deformity on the exiting right L2 nerve root. Mild left foraminal narrowing. L3-L4: Disc bulge. Facet hypertrophy. Mild canal stenosis. Mild bilateral foraminal stenosis. L4-L5: Disc bulge. Facet hypertrophy. Borderline canal stenosis. Mild bilateral foraminal stenosis. L5-S1: Severe chronic disc height loss. Posterior disc bulge plus osteophyte. Borderline canal sten osis. Mild bilateral foraminal stenosis. Soft tissues: No retroperitoneal masses or hematomas. Visualized aorta is normal in caliber. IMPRESSION: 1. Old L1 compression fracture. No acute compression fractures. 2. Diffuse degenerative change. 3. Canal stenosis is moderate at L2-L3, mild at L3-L4, and borderline at L4-L5 and L5-S1. Reviewed by: Rojelio Mancera MD on 12/14/2020 8:45 AM [facility] Approved by: Rojelio Mancera MD on 12/14/2020 8:45 AM [facility] Station ID: [id number]
[2020-12-14 10:19] VITALS: BP 167/51
== END 2020-12-14 10:18 | disposition home or self-care (01) ==
LOC: ED 07:58
DX: S39.012A Strain of muscle, fascia and tendon of lower back, initial encounter (principal); X50.0XXA Overexertion from strenuous movement or load, initial encounter; I10 Essential (primary) hypertension; I48.91 Unspecified atrial fibrillation
CPT/HCPCS: 72131; 96372; 99284; A9270

== ENCOUNTER 2021-05-20 17:03 | Emergency (ER) | payer BC, MEDICARE ==
[2021-05-20 17:17] VITALS: BP 158/55
--- NOTE | 2021-05-20 17:42 | ED Physician Documentation ---
History of Present Illness - Stated complaint Stated Complaint: BACK PAIN - Chief complaint Chief Complaint: Back Pain - History obtained from History obtained from: Patient, Family - History of Present Illness Timing: Today Pain level max: 6 Pain level now: 6 - Additonal information Additional information: Patient is an 89-year-old male who presents to the emergency department with back pain. Have a longstanding history of arthritis in the back and back spasms. States that this feels similar. Denies any trauma. Had a CT scan of the lumbar spine a few months ago without acute abnormality. Similar to his chronic back pain. He does tend to a very large [employer] garden. Worse with moving, better with rest. No loss of bowel or bladder control. No fevers. No chills. No IV drug use. No trauma Review of Systems Constitutional: denies: Fever, Chills GI: denies: Vomiting, Diarrhea Skin: denies: Rash Musculoskeletal: denies: Neck pain Neurologic: denies: Headache PD PAST MEDICAL HISTORY - Past Medical History Cardiovascular: Hypertension, Atrial fibrillation, Arrhythmia, Other Respiratory: None Neuro: TIA Endocrine/Autoimmune: HyPOthyroidism GI: GERD, Hiatal hernia : None HEENT: Chronic hearing loss Psych: None Musculoskeletal: Osteoarthritis Derm: None - Past Surgical History Past Surgical History: Yes General: Hiatal hernia repair, Colonoscopy, EGD Ortho: Other Derm: Skin cancer surgery - Present Medications Home Medications: Ambulatory Orders Medication Instructions Recorded Confirmed Cholecalciferol (Vitamin D3) 1,000 unit PO DAILY 11/14/14 12/14/20 [Vitamin D] Cod Liver Oil 1 each PO DAILY 11/14/14 12/14/20 Flaxseed Oil/[place] 3,6,9 [Sv 1 each PO DAILY 11/14/14 12/14/20 Flaxseed Oil 1,300 mg Sftgl] Levothyroxine [Synthroid] 25 mcg PO DAILY 11/14/14 12/14/20 Multivitamin [Multivitamins] 1 each PO DAILY 11/14/14 12/14/20 Atorvastatin [Lipitor] 10 mg ORAL DAILY 12/10/15 12/14/20 Isosorbide Mononitrate [Isosorbide 30 mg ORAL DAILY 12/10/15 12/14/20 Mononitrate ER] Losartan/Hydrochlorothiazide 0.5 tab ORAL DAILY 12/10/15 12/14/20 [Hyzaar 100-25 Tablet] Mag Carb/Al Hydrox/Alginic AC 160 mg PO ONCE PRN 12/10/15 12/14/20 [Gaviscon Extra Strength Liquid] Rivaroxaban [Xarelto] 10 mg PO DAILY 12/10/15 12/14/20 Nitroglycerin [Nitrostat] 0.4 mg PO PRN PRN 05/18/17 12/14/20 Acetaminophen [Tylenol] 1,000 mg PO Q6H PRN 12/14/20 12/14/20 Esomeprazole Magnesium [Nexium] 20 mg PO BID 12/14/20 12/14/20 HYDROcod/ACETAM 5/325 [[place] 5/325] 1 ea PO Q6H PRN #10 tablet 12/14/20 methocarbamoL [Robaxin] 500 mg PO Q6H PRN #20 tablet 12/14/20 HYDROcod/ACETAM 5/325 [[place] 5/325] 1 ea PO Q6H PRN #14 tablet 05/20/21 methocarbamoL [Robaxin] 500 mg PO Q8H PRN #20 tablet 05/20/21 - Allergies Allergies/Adverse Reactions: Allergies Allergy/AdvReac Type Severity Reaction Status Date / Time lisinopril Allergy Edema Verified 05/20/21 17:17 - Social History Does the pt smoke?: No Smoking Status: Never smoker Does the pt drink ETOH?: Yes Does the pt have substance abuse?: No - Immunizations Immunizations are current?: Yes - POLST Patient has POLST: No PD ED PE NORMAL - Vitals Vital signs reviewed: Yes - General General: Alert and oriented X 3, No acute distress - HEENT HEENT: Moist mucous membranes - Neck Neck: Supple, no meningeal sign - Cardiac Cardiac: RRR, Strong equal pulses - Respiratory Respiratory: No respiratory distress, Clear bilaterally - Abdomen Abdomen: Soft, Non tender, Non distended - Back Back: No spinal TTP, Other (no midline TTP, no step off or deformity. 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 Normal great toe extension bilaterally. no saddle anesthesia) Results - Vitals Vitals: Oxygen O2 Source Room air PD MEDICAL DECISION MAKING - ED course Complexity details: reviewed old records, considered differential (No cauda equina, no spinal epidural abscess, no fracture, no aortic dissection or evidence of aneursym rupture), d/w patient ED course: Patient with chronic back pain. Will prescribe pain medication for home. No indication for imaging at this time. No evidence of cauda equina, epidural abscess, fractures. Feels better after pain medication. Patient and family counseled regarding signs and symptoms for which I believe and urgent re- evaluation would be necessary. Patient with good understanding of and agreement to plan and is comfortable going home at this time This document was made in part using voice recognition software. While efforts are made to proofread this document, sound alike and grammatical errors may occur. Departure - Departure Disposition: 01 Home, Self Care Clinical Impression: Back muscle spasm Condition: Good Instructions: ED Spasm Back No Trauma Follow-Up: Micheal Hart MD [Primary Care Provider] - Within 1 week Prescriptions: HYDROcod/ACETAM 5/325 [[place]ed 5/325] 1 ea PO Q6H PRN #14 tablet PRN Reason: Pain methocarbamoL [Robaxin] 500 mg PO Q8H PRN #20 tablet PRN Reason: muscle spasm Comments: You can use the medications as needed for pain. Please follow-up with your doctor for further care. Return if you worsen. You did have a CT of your toney mbar spine back in December. I am prescribing a short course of narcotic pain medication for you. These are potentially dangerous and addictive medications that should be used carefully. These medications may constipate you. Take an tvie-[id number]-yltzhpy stool softener (docusate) twice daily with plenty of water while taking these medications. If you go 24 hours without a bowel movement, take [id number]-msg-txnlted miralax, per package instructions. Do not drink or drive while taking these medications. If you received narcotic or sedating medications while in the emergency department, do not drive for 24 hours. Store this medication in a safe, secure place and out of reach of children. It is a violation of federal law to give or sell this medication to another person or to use in a manner other than prescribed. The ED will not refill narcotic prescriptions, including prescriptions lost or stolen. To dispose of unwanted medications: 1. [facility] at [address] in [place] has a medication drop box. They accept prescription medications (in pill form) Wednesday through Wednesday 9:00 a.m. to 5:00 p.m. 2. The [facility] accepts prescription medications (in pill form only) for disposal year round. Call for more information. 3. Contact the [facility] for the next [facility] sponsored prescription drug collection event. , [phone], or [phone]; Discharge Date/Time: 05/20/21 18:07
[2021-05-20] MEDS: HYDROcod/ACETAM 5/325 MG TABLET PO STA (17:52)
[2021-05-20] MEDS: methocarbamoL 500 MG TABLET PO STA (17:52)
== END 2021-05-20 18:07 | disposition home or self-care (01) ==
LOC: ED 17:03
DX: M62.830 Muscle spasm of back (principal); I10 Essential (primary) hypertension; I48.91 Unspecified atrial fibrillation
CPT/HCPCS: 99282; 99284; A9270

== ENCOUNTER 2021-05-26 12:51 | Outpatient (CLI) | payer BC ==
--- NOTE | 2021-05-26 13:32 | XRAY Report ---
PROCEDURE: Lumbar Spine 2 View INDICATIONS: LOW BACK PAIN TECHNIQUE: 2 views of the lumbar spine were acquired. COMPARISON: CT of lumbar spine dated 12/14/2020 FINDINGS: Bones: 5 pre-nlk-nklsxnj vertebrae are present. There is mild levoscoliosis of lumbar spine centere d at L2-3 level. Moderate to severe degenerative endplate changes are noted throughout lumbar spine m ore prominent at L2-3 and L5-S1 levels. Chronic-appearing anterior wedge compression deformity at L1 level is noted with up to 25% loss of L1 vertebral body height anteriorly. No gross acute compression fracture. No suspicious bony lesions. Soft tissues: Overlying bowel gas pattern is normal. No suspicious soft tissue calcifications. IMPRESSION: Chronic-appearing anterior wedge compression deformity at L1 level not significantly jonelle nged from previous CT study. Degenerative disc disease throughout lumbar spine. No acute compression fracture or spondylolisthesis. Reviewed by: Carlo Painting MD on 05/26/2021 1:31 PM PDT Approved by: Carlo Painting MD on 05/26/2021 1:31 PM PDT Station ID: [id number]
== END 2021-05-26 12:52 | disposition home or self-care (01) ==
LOC: DI 12:51
PROVIDERS: ATTEND Family Medicine
DX: M51.36 Other intervertebral disc degeneration, lumbar region (principal); M51.37 Other intervertebral disc degeneration, lumbosacral region; M48.56XD Collapsed vertebra, not elsewhere classified, lumbar region, subsequent encounter for fracture with routine healing

== ENCOUNTER 2021-09-26 13:38 | Outpatient (CLI) | payer BC ==
--- NOTE | 2021-09-26 14:38 | CT Report ---
PROCEDURE: HEAD WO INDICATIONS: Syncope TECHNIQUE: Noncontrast 4.5 mm thick angled axial sections acquired from the foramen magnum to the vertex. For r adiation dose reduction, the following was used: automated exposure control, adjustment of mA and/or kV according to patient size. COMPARISON: None. FINDINGS: Image quality: Excellent. CSF spaces: Basal cisterns are patent. No extra-axial fluid collections. Ventricles are normal in size and shape. Brain: No midline shift. No intracranial masses or hemorrhage. Trent-white matter interface is norm al. Skull and face: Calvarium and visualized facial bones are intact, without suspicious lesions. Sinuses: Visualized sinuses and mastoids are clear. IMPRESSION: No acute intracranial finding. Reviewed by: Ezio Pablo MD on 09/26/2021 2:36 PM [facility] Approved by: Ezio Pablo MD on 09/26/2021 2:36 PM [facility] Station ID: [id number]
== END 2021-09-26 13:39 | disposition home or self-care (01) ==
LOC: DI 13:38
PROVIDERS: ATTEND Family Medicine
DX: R55 Syncope and collapse (principal)